=== PATIENT | male | born 1985 | race Caucasian/White ===

== ENCOUNTER 2017-08-11 12:49 | Emergency (ER) | payer OTHER ==
[~2017-08-11] VITALS: Ht 177.8 cm; Wt 105.2 kg
[2017-08-11 15:12] VITALS: BP 135/102
== END 2017-08-11 15:13 | disposition home or self-care (01) ==
LOC: EME 12:49
DX: S61.211A Laceration without foreign body of left index finger without damage to nail, initial encounter (principal); S61.213A Laceration without foreign body of left middle finger without damage to nail, initial encounter; W26.8XXA Contact with other sharp object(s), not elsewhere classified, initial encounter; Z23 Encounter for immunization
CPT/HCPCS: 99281; 99284

== ENCOUNTER 2018-02-24 23:50 | Emergency (ER) | payer OTHER ==
[~2018-02-24] VITALS: Ht 177.8 cm; Wt 85.5 kg
[2018-02-25 00:10] LABS: HEMATOCRIT 43.5 % (38.0-50.0); HEMOGLOBIN 15.2 G/DL (12.5-16.6); MCH 32.7 PG (29.0-34.0); MCHC 34.9 G/DL (30.0-36.0); MCV 93.5 FL (86-99); PLATELET COUNT 243 K/uL (156-360); RBC DIS.WIDTH-CV 12.8 % (11.8-14.6); RBC DIS.WIDTH-SD 43.8 % (39-53); RED BLOOD COUNT 4.65 M/uL (4.00-5.50); WHITE BLOOD COUNT 6.7 K/uL (4.1-10.2)
[2018-02-25 00:21] LABS: CHLORIDE 105 mEq/L (99-109); POTASSIUM 3.6 mEq/L (3.7-5.4); SODIUM 140 mEq/L (136-147)
[2018-02-25 00:23] LABS: GLUCOSE 80 mg/dL (70-99)
[2018-02-25 00:27] LABS: CREATININE 0.9 mg/dL (0.6-1.3); GFR ESTIMATE (CALCULATED) > 59 mL/min/ (58.99-99999)
[2018-02-25 00:28] LABS: UREA NITROGEN (BUN) 18 mg/dL (9-23)
[2018-02-25 00:33] LABS: MAGNESIUM 2.5 mg/dL (1.3-2.7); TROP-I INTERPRETATION NEGATIVE; TROPONIN-I < 0.01 ng/mL (0.0-0.30)
[2018-02-25 03:38] VITALS: BP 150/92
== END 2018-02-25 03:39 | disposition home or self-care (01) ==
LOC: EME 23:50
DX: I49.3 Ventricular premature depolarization (principal)
CPT/HCPCS: 71046; 80048; 83735; 84484; 85027; 93005; 99281; 99285